=== PATIENT | female | born 1970 | race Caucasian/White ===

== ENCOUNTER → 2019-04-26 12:23 | Outpatient (CLI) | payer MEDICAID, SELFPAY ==
[2019-02-07 06:29] VITALS: BMI 27.7
--- NOTE | 2019-04-26 12:50 | RAD_ITS ---
STUDY: X-RAY - RIGHT KNEE REASON FOR EXAM: Female, 48 years old. Pain TECHNIQUE: 4 view(s) of the knee. COMPARISON: None. FINDINGS: Normal visualized distal femur. Normal visualized proximal tibia and fibula. Normal proximal tibiofibular articulation. Mildly narrowed medial femorotibial compartment. Normal lateral femorotibial compartment. Normal patellofemoral articulation. The soft tissue structures are unremarkable. RAD/Knee 4 or More Views IMPRESSION: Mild degenerative changes. No acute fracture or other significant bony pathology Electronically Signed: Noel Fontana MD at 21:49 EDT , Service support ,
--- NOTE | 2019-04-26 12:50 | RAD_ITS ---
STUDY: X-RAY - RIGHT FOOT CLINICAL: Female, 48 years old. Pain TECHNIQUE: 2 view(s) of the foot. COMPARISON: None. FINDINGS: Normal talus, calcaneus, and tarsal bones. Normal visualized subtalar, talonavicular, calcaneocuboid, tarsal and tarsometatarsal articulations. Normal metatarsi. Normal metatarsophalangeal joint of the great toe. Normal tibial and fibular sesamoid bones. Normal interphalangeal joint of the great toe. Normal phalanges of the great toe. Normal second through fifth metatarsophalangeal joints. Normal interphalangeal joints and phalanges of the lesser toes. The soft tissue structures are unremarkable. RAD/Foot 2 Views IMPRESSION: Normal x-ray examination of the foot. Electronically Signed: Noel Fontana MD at 21:58 EDT , Service support ,
--- NOTE | 2019-04-26 12:50 | RAD_ITS ---
STUDY: X-RAY - LEFT KNEE REASON FOR EXAM: Female, 48 years old. Pain TECHNIQUE: 4 view(s) of the knee. COMPARISON: None. FINDINGS: Normal visualized distal femur. Normal visualized proximal tibia and fibula. Normal proximal tibiofibular articulation. Mildly narrowed medial femorotibial compartment. Normal lateral femorotibial compartment. Normal patellofemoral articulation. Small spur arising off the upper pole of the patella The soft tissue structures are unremarkable. RAD/Knee 4 or More Views IMPRESSION: Mild degenerative change. No evidence for acute fracture Electronically Signed: Noel Fontana MD at 21:48 EDT , Service support ,
--- NOTE | 2019-04-26 12:50 | RAD_ITS ---
STUDY: X-RAY - LEFT HAND REASON FOR EXAM: Female, 48 years old. Pain TECHNIQUE: 3 view(s) of the hand. COMPARISON: None. FINDINGS: Normal radiocarpal articulation. Normal distal radioulnar joint. Normal visualized carpal bones. Normal carpal articulations Normal carpometacarpal articulation of the thumb. Normal second through fifth carpometacarpal joints. Normal metacarpi. Normal metacarpophalangeal joint of the thumb. Normal interphalangeal joint of the thumb. Normal proximal and distal phalanges of the thumb. Normal metacarpophalangeal joints of the second through fifth fingers. Normal proximal and distal interphalangeal joints of the second through fifth fingers. Normal phalanges of the second through fifth fingers. The soft tissue structures are unremarkable. RAD/Hand Min 3 Views IMPRESSION: Normal x-ray examination of the hand. Electronically Signed: Noel Fontana MD at 21:51 EDT , Service support ,
--- NOTE | 2019-04-26 12:50 | RAD_ITS ---
STUDY: X-RAY - RIGHT HAND REASON FOR EXAM: Female, 48 years old. Pain TECHNIQUE: 3 view(s) of the hand. COMPARISON: None. FINDINGS: Normal radiocarpal articulation. Normal distal radioulnar joint. Normal visualized carpal bones. Normal carpal articulations Normal carpometacarpal articulation of the thumb. Normal second through fifth carpometacarpal joints. Normal metacarpi. Normal metacarpophalangeal joint of the thumb. Normal interphalangeal joint of the thumb. Normal proximal and distal phalanges of the thumb. Normal metacarpophalangeal joints of the second through fifth fingers. Normal proximal and distal interphalangeal joints of the second through fifth fingers. Normal phalanges of the second through fifth fingers. The soft tissue structures are unremarkable. RAD/Hand Min 3 Views IMPRESSION: Normal x-ray examination of the hand. Electronically Signed: Noel Fontana MD at 21:50 EDT , Service support ,
--- NOTE | 2019-04-26 12:50 | RAD_ITS ---
STUDY: X-RAY - LEFT FOOT CLINICAL: Female, 48 years old. Pain TECHNIQUE: 2 view(s) of the foot. COMPARISON: None. FINDINGS: Normal talus, calcaneus, and tarsal bones. Normal visualized subtalar, talonavicular, calcaneocuboid, tarsal and tarsometatarsal articulations. Normal metatarsi. Normal metatarsophalangeal joint of the great toe. Normal tibial and fibular sesamoid bones. Normal interphalangeal joint of the great toe. Normal phalanges of the great toe. Normal second through fifth metatarsophalangeal joints. Normal interphalangeal joints and phalanges of the lesser toes. The soft tissue structures are unremarkable. RAD/Foot 2 Views IMPRESSION: Normal x-ray examination of the foot. Electronically Signed: Noel Fontana MD at 21:59 EDT , Service support ,
[2019-04-26 13:11] LABS: Absolute Lymphocyte Count 1.84 X10^3/uL (0.83-4.51); Absolute Neutrophil Count 6.1 X10^3/uL (2.0-7.7); Basophil# 0.05 X10^3/uL; Basophil% 0.6 % (0-1); Eosinophil# 0.21 X10^3/uL; Eosinophils% 2.4 % (0-5); Hematocrit 44.9 % (37-47); Hemoglobin 14.5 g/dL (12.0-15.0); Lymphocyte # 1.84 X10^3/ul (4.0); Mean Corp Hgb Conc 32.3 g/dL (32-36); Mean Corpuscular Hgb 28.4 pg (27.0-32.0); Mean Platelet Vol. 9.3 fl (6.2-12.0); Monocyte% 5.7 % (0-10); NRBC Flagged by Analyzer 0 % (0-5); Neutrophil # 6.12 X10^3/uL (2.7-7.7); Neutrophil % 69.7 % (47-70); Platelet Count 319 K/mm3 (150-450); RBC Distribution Width CV 13.1 % (11.6-14.6); RBC Distribution Width SD 42.1 fl (35.1-43.9); White Blood Count 8.8 K/mm3 (4.4-11.0)
[2019-04-26 13:38] LABS: AST(SGOT) 19 U/L (15-37); Alanine Aminotransfer ALT/SGPT 38 U/L (13-56); Alkaline Phosphatase 161 U/L (45-117); Anion Gap 8 (5-15); BUN 14 mg/dL (7-18); BUN/Creat Ratio 12.8 RATIO (10-20); Calcium,Total 8.9 mg/dL (8.5-10.1); Chloride 105 mmol/L (98-107); Creatinine, Serum 1.09 mg/dL (0.55-1.02); EST Glomerular Filtration Rate 57 mL/min (>60); Est Glom Filt Rate - Afr Amer 68 mL/min (>60); Globulin 4.2 g/dL (2.2-4.2); Glucose 106 mg/dL (74-106); Potassium 3.8 mmol/L (3.5-5.1); Protein, Total 8.2 g/dL (6.4-8.2); Sodium Level 140 mmol/L (136-145); Uric Acid 7.2 mg/dL (2.6-6.0)
[2019-04-26 13:41] LABS: Erythrocyte Sedimentation Rate 34 mm/hr (0-20)
[2019-04-26 14:25] LABS: HIV - WCH Non-Reactive (Nonreactive); Hepatitis C Antibody Non-Reactive (Nonreactive)
[2019-04-27 13:15] LABS: ANTINUCLEAR ANTIBODIES DIRECT Negative (Negative)
[2019-04-27 14:38] LABS: C-Peptide 7.2 ng/mL (1.1-4.4)
== END ==
DX: E55.9 Vitamin D deficiency, unspecified (principal); M25.512 Pain in left shoulder; R21 Rash and other nonspecific skin eruption; M06.4 Inflammatory polyarthropathy
CPT/HCPCS: 36415; 73130; 73564; 73620; 80053; 84550; 84681; 85025; 85652; 86038; 86140; 86431; 86703; 86803

== ENCOUNTER → 2019-05-26 14:49 | Outpatient (CLI) | payer MEDICAID, SELFPAY ==
[2019-02-07 06:29] VITALS: BMI 27.7
--- NOTE | 2019-05-26 15:08 | RAD_ITS ---
STUDY: X-RAY CHEST REASON FOR EXAM: Female, 48 years old. Chronic bronchitis. Rheumatoid arthritis. TECHNIQUE: PA and lateral chest radiographs. COMPARISON: None. FINDINGS: Focal right apical airspace disease most prominent adjacent to the pleura. Mild left apical pleural scarring. Otherwise the lungs are clear with no evidence of pneumothorax or pleural effusion. Cardiac silhouette, serena and mediastinal contours are within normal limits. No acute osseous abnormality. No evidence of free air under the diaphragm. RAD/Chest PA and Lateral IMPRESSION: Right apical airspace disease could represent pneumonia or chronic scarring. Comparison with priors would be helpful. If clinically necessary CT would better visualize this abnormality. Electronically Signed: Ahmet Flores, at 15:39 EDT Tel , Service support ,
[2019-05-31 15:09] LABS: CCP IgG Antibodies 4 units (0-19)
== END ==
DX: J42 Unspecified chronic bronchitis (principal); E55.9 Vitamin D deficiency, unspecified; M25.512 Pain in left shoulder; R21 Rash and other nonspecific skin eruption; M06.4 Inflammatory polyarthropathy; R79.89 Other specified abnormal findings of blood chemistry
CPT/HCPCS: 36415; 71046; 86200

== ENCOUNTER → 2019-06-14 06:34 | Outpatient (CLI) | payer MEDICAID, SELFPAY ==
[2019-02-07 06:29] VITALS: BMI 27.7
--- NOTE | 2019-06-15 09:23 | PFT ---
INTRODUCTION: The patient is a 49-year-old female that presents for pulmonary function studies secondary to a diagnosis of chronic bronchitis. Respiratory therapy reports good patient effort. Bronchodilators were used during testing. INTERPRETATION: Forced expiration spirometry demonstrates the presence of a mild large airways obstructive ventilatory defect. There was no significant response to aerosolized bronchodilators, based upon strict ATS criteria. Spirograms are of fair quality and plateau gradually indicating slow emptying of the lungs. Body plus tomography was performed and reveals lung volumes to be within normal limits. Diffusing capacity by single breath CO is within normal limits at 93% of predicted. IMPRESSION: Mild large airways obstructive ventilatory defect. Lung volumes and diffusing capacity are within normal limits.
== END ==
DX: J42 Unspecified chronic bronchitis (principal); R21 Rash and other nonspecific skin eruption; M06.4 Inflammatory polyarthropathy
CPT/HCPCS: 94060; 94726; 94729

== ENCOUNTER → 2019-07-07 07:29 | Outpatient (CLI) | payer MEDICAID, SELFPAY ==
[2019-02-07 06:29] VITALS: BMI 27.7
--- NOTE | 2019-07-07 07:32 | CT_ITS ---
STUDY: CT CHEST WITHOUT CONTRAST REASON FOR EXAM: Female, 49 years old. Cough RADIATION DOSAGE (If Supplied By Facility): DLP = ( 469.10 ) mGycm TECHNIQUE: Transaxial imaging was performed without the administration of intravenous contrast material. Coronal and sagittal reformatted images were created. Individualized dose optimization techniques were used for this CT. COMPARISON: None FINDINGS: There are no pulmonary infiltrates or pleural effusions. There are innumerable pulmonary nodules in the upper lobes bilaterally with some areas of confluence. Additional nodules are present in the right middle and bilateral lower lobes including a right middle lobe 5 mm nodule, right lower lobe 6 mm nodule, series 4 image 96, right lower lobe 3 mm nodule, series 4 image 54, left fissural 7 mm nodule, series 4 image 60, and left lower lobe 7 mm nodule, series 4 image 81. There is no pneumothorax. The heart and pericardium are within normal limits. Mediastinal and bilateral hilar calcified lymphadenopathy is present. There is no evidence of thoracic aortic aneurysm. Images through the upper abdomen demonstrate no significant abnormality. There are no destructive osseous lesions. CT/Chest without Contrast IMPRESSION: Numerous bilateral pulmonary nodules as described above, with extensive nodules and confluence in the upper lobes, and round solid nodules in the right middle and bilateral lower lobes. Considerations include sarcoid, infectious processes, inflammatory process, and less likely neoplasm. Mixed etiologies also a consideration. Clinical correlation and short-term follow-up is recommended. Electronically Signed: Noel Bingham, at 20:07 EDT Tel , Service support ,
== END ==
DX: M05.9 Rheumatoid arthritis with rheumatoid factor, unspecified (principal); R78.89 Finding of other specified substances, not normally found in blood; R05 Cough; R21 Rash and other nonspecific skin eruption; M06.4 Inflammatory polyarthropathy
CPT/HCPCS: 71250

== ENCOUNTER → 2019-07-28 06:42 | Outpatient (CLI) | payer MEDICAID, SELFPAY ==
[2019-07-22 10:04] VITALS: BMI 26.7
--- NOTE | 2019-07-29 10:01 | BRONCHALL ---
Bronchoprovocation Challenge - Bronchoprovocation Challenge Bronchoprovocation Challenge: BRONCHOPROVOCATION STUDY INTERPRETATION Brief HPI: Patient is a 49 year old female, currently under the care of myself, who presents to [facility] for a bronchoprovocation study secondary to diagnosis of cough/dyspnea. Respiratory therapist reports good effort and reproducible results. Interpretation: Initial spirometry showed no large airways obstructive ventilatory defect. The patient was then given increasingly concentrated doses of methacholine in a stepwise fashion, using a modified ATS protocol. The patient?s maximum reduction in FEV1 was 7 percent predicted. Impression: Negative Bronchoprovocation study. This is NOT consistent with the diagnosis of asthma.
== END ==
PROVIDERS: Referring Provider Internal Medicine Critical Care Medicine; Visit Provider Internal Medicine Critical Care Medicine
DX: R05 Cough (principal); R93.89 Abnormal findings on diagnostic imaging of other specified body structures; M06.9 Rheumatoid arthritis, unspecified
CPT/HCPCS: 94070; 95070; J3490; J7674

== ENCOUNTER → 2019-08-09 13:36 | Outpatient (CLI) | payer MEDICAID, SELFPAY ==
[2019-07-22 10:04] VITALS: BMI 26.7
--- NOTE | 2019-08-09 13:37 | ECHOCS_ITS ---
Reason For Study: PHTN Procedure This was a 2D Doppler, Color Flow transthoracic echocardiogram. The study was technically difficult. Contrast injection was performed. Exam performed in department. Left Ventricle Normal LV size. Left ventricular systolic function is normal. The estimated ejection fraction is 60 %. Transmitral doppler flow suggestive of impaired relaxation of left ventricle. No regional wall motion abnormalities noted. Right Ventricle Normal RV size. Normal systolic function. Atria Normal left atrium. Normal right atrium. No doppler evidence for ASD. Mitral Valve There is no mitral annular calcification. Normal mitral valve. Mild (1+) mitral valve insufficiency. Tricuspid Valve Normal tricuspid valve. Trivial tricuspid valve insufficiency. Unable to estimate RV systolic pressure/pulmonary artery pressure due to technically difficult study. Aortic Valve Trisinus/trileaflet aortic valve. Normal aortic valve. Pulmonic Valve The pulmonic valve is not well visualized. Great Vessels Normal sized aortic root. Pericardium/Pleural No pericardial effusion. Medication 22 gauge I.V. with prn adaptor inserted into right arm. Diluted definity 2ml given slow IV push to enhance endocardial definition. MMode/2D Measurements & Calculations LVIDd: 3.8 cm IVSd: 0.97 cm Ao root diam: 2.9 cm LVIDs: 2.6 cm LVPWd: 0.87 cm LA dimension: 3.3 cm RVDd: 3.8 cm FS: 31.5 % LAV(MOD-bp): 55.7 ml LA A4 area: 19.1 cm2 RA A4 area: 14.2 cm2 LAV(MOD-bp) Indexed: 29.2 ml/m2 LAV(MOD-sp2): 50.8 ml LAV(MOD-sp4): 53.2 ml Time Measurements MV dec time: 0.15 sec Doppler Measurements & Calculations MV E max maurisio: 63.1 cm/sec Lat Peak E' Maurisio: 10.5 cm/sec Med Peak E' Maurisio: 8.3 cm/sec MV A max maurisio: 86.8 cm/sec E/E' lat: 6.0 E/E' med: 7.6 MV E/A: 0.73 MV V2 max: 94.5 cm/sec MV P1/2t max maurisio: 84.8 cm/sec Ao V2 max: 120.4 cm/sec MV max P.6 mmHg MV P1/2t: 65.1 msec Ao max P.8 mmHg MV V2 mean: 56.8 cm/sec MV dec slope: 381.5 cm/sec2 MV mean P.5 mmHg MV V2 VTI: 18.9 cm MVA(P1/2t): 3.4 cm2 LV V1 max: 117.4 cm/sec MR max maurisio: 505.8 cm/sec PA V2 max: 84.7 cm/sec LV V1 max P.5 mmHg MR max P.3 mmHg Interpretation Summary The study was technically difficult. Contrast injection was performed. Left ventricular systolic function is normal. The estimated ejection fraction is 60 %. Mild (1+) mitral valve insufficiency. Trivial tricuspid valve insufficiency. Unable to estimate RV systolic pressure/pulmonary artery pressure due to technically difficult study. Transmitral doppler flow suggestive of impaired relaxation of left ventricle Ordering Physician: Rashaun Louie Referring Physician: Rashaun Louie Performed By: Sae Shanks RCS
== END ==
PROVIDERS: Referring Provider Internal Medicine Critical Care Medicine; Visit Provider Internal Medicine Critical Care Medicine
DX: I27.20 Pulmonary hypertension, unspecified (principal); M06.9 Rheumatoid arthritis, unspecified; R05 Cough; R93.89 Abnormal findings on diagnostic imaging of other specified body structures
CPT/HCPCS: 93306; Q9957; A4216; C8929

== ENCOUNTER → 2020-07-02 08:17 | Outpatient (CLI) | payer MEDICAID, SELFPAY ==
[2020-06-21 10:34] VITALS: BMI 22.5
== END ==
PROVIDERS: Referring Provider Internal Medicine Cardiovascular Disease; Visit Provider Internal Medicine Cardiovascular Disease
DX: I45.10 Unspecified right bundle-branch block (principal); D86.9 Sarcoidosis, unspecified; E78.2 Mixed hyperlipidemia
CPT/HCPCS: 93225; 93226

== ENCOUNTER → 2020-08-03 06:38 | Outpatient (CLI) | payer MEDICAID, SELFPAY ==
[2020-06-21 10:34] VITALS: BMI 22.5
--- NOTE | 2020-08-03 13:49 | PFT ---
INTRODUCTION: The patient is a 50-year-old female that presents for pulmonary function studies secondary to a diagnosis of sarcoidosis. Respiratory therapy reports good patient effort. Bronchodilators were used during testing. INTERPRETATION: Forced expiration spirometry demonstrates no evidence of a large airways obstructive ventilatory defect. There was no significant response to aerosolized bronchodilators. Spirograms are of good quality and plateau normally. Body plethysmography was performed and reveals lung volumes to be within normal limits. Diffusing capacity by single breath CO was also within normal limits. There has been improvement in the patient's FEV 1 by 25% since May 2019. IMPRESSION: Grossly normal pulmonary function studies.
== END ==
DX: D86.2 Sarcoidosis of lung with sarcoidosis of lymph nodes (principal)
CPT/HCPCS: 94060; 94726; 94729

== ENCOUNTER → 2020-10-29 12:44 | Outpatient (CLI) | payer MEDICAID, SELFPAY ==
[2020-06-21 10:34] VITALS: BMI 22.5
--- NOTE | 2020-10-29 12:46 | ECHOD_ITS ---
Reason For Study: Pericardial Effusion Procedure This was a 2D Doppler, Color Flow transthoracic echocardiogram. The exam was of adequate technical quality. Exam performed in department. Left Ventricle Normal LV size. Left ventricular systolic function is normal. The estimated ejection fraction is 65 %. Transmitral doppler flow suggestive of impaired relaxation of left ventricle. No regional wall motion abnormalities noted. Right Ventricle Normal RV size. Normal systolic function. Atria Normal left atrium. Normal right atrium. No doppler evidence for ASD. Mitral Valve There is no mitral annular calcification. Mild diffuse mitral valve thickening. Mild (1+) mitral valve insufficiency. Tricuspid Valve Normal tricuspid valve. Trivial tricuspid valve insufficiency. Right ventricular systolic pressure estimated to be 20 mmHg. Aortic Valve Trisinus/trileaflet aortic valve. Normal aortic valve. Pulmonic Valve The pulmonic valve is not well visualized. Great Vessels Normal sized aortic root. Pericardium/Pleural Trivial pericardial effusion. There are no echocardiographic indications of cardiac tamponade. MMode/2D Measurements & Calculations LVIDd: 4.2 cm IVSd: 0.98 cm Ao root diam: 2.8 cm LVIDs: 2.4 cm LVPWd: 0.90 cm RVDd: 3.2 cm FS: 42.5 % LAV(MOD-bp): 29.7 ml LVAd ap4: 21.6 cm2 SV(MOD-sp4): 28.4 ml LAV(MOD-bp) Indexed: 16.7 ml/m2 EDV(MOD-sp4): 51.4 ml LAV(MOD-sp2): 30.5 ml EDV(sp4-el): 52.4 ml LAV(MOD-sp4): 28.4 ml LVAs ap4: 13.2 cm2 ESV(MOD-sp4): 23.0 ml ESV(sp4-el): 23.2 ml EF(MOD-sp4): 55.2 % EF(sp4-el): 55.7 % SV(sp4-el): 29.2 ml LA A4 area: 12.5 cm2 LA dimension(2D): 3.0 cm RA A4 area: 10.6 cm2 Doppler Measurements & Calculations MV E max maurisio: 74.4 cm/sec Lat Peak E' Maurisio: 12.3 cm/sec Med Peak E' Maurisio: 6.1 cm/sec MV A max maurisio: 87.7 cm/sec E/E' lat: 6.0 E/E' med: 12.3 MV E/A: 0.85 Ao V2 max: 137.5 cm/sec LV V1 max: 99.0 cm/sec PA V2 max: 97.1 cm/sec Ao max P.6 mmHg LV V1 max P.9 mmHg Ao V2 mean: 96.1 cm/sec Ao mean P.0 mmHg Ao V2 VTI: 26.0 cm TR max maurisio: 206.7 cm/sec TR max P.1 mmHg Interpretation Summary Left ventricular systolic function is normal. The estimated ejection fraction is 65 %. Mild diffuse mitral valve thickening. Mild (1+) mitral valve insufficiency. Trivial tricuspid valve insufficiency. Trivial pericardial effusion. There are no echocardiographic indications of cardiac tamponade. Right ventricular systolic pressure estimated to be 20 mmHg. Transmitral doppler flow suggestive of impaired relaxation of left ventricle Ordering Physician: Deep Khoury Referring Physician: Johanna Batista Performed By: Diane Wilkinson, RDCS, RVT
== END ==
PROVIDERS: Referring Provider Internal Medicine Cardiovascular Disease; Visit Provider Internal Medicine Cardiovascular Disease
DX: I31.3 Pericardial effusion (noninflammatory) (principal); D86.9 Sarcoidosis, unspecified; M06.9 Rheumatoid arthritis, unspecified; R93.89 Abnormal findings on diagnostic imaging of other specified body structures
CPT/HCPCS: 93306

== ENCOUNTER → 2021-01-07 14:19 | Outpatient (CLI) | payer MEDICAID, SELFPAY ==
[2020-06-21 10:34] VITALS: BMI 22.5
[2021-01-07 15:15] LABS: Absolute Lymphocyte Count 2.06 X10^3/uL (0.83-4.51); Basophil# 0.07 X10^3/uL; Basophil% 1.2 % (0-1); Eosinophil# 0.13 X10^3/uL; Eosinophils% 2.2 % (0-5); Hematocrit 41.6 % (37-47); Hemoglobin 12.7 g/dL (12.0-15.0); Lymphocyte # 2.06 X10^3/ul (4.0); Lymphocyte % 35.5 % (19-41); Mean Corp Hgb Conc 30.5 g/dL (32-36); Mean Corpuscular Hgb 27.7 pg (27.0-32.0); Mean Corpuscular Volume 90.6 fL (81-99); Mean Platelet Vol. 10.4 fl (6.2-12.0); Monocyte% 8.6 % (0-10); NRBC Flagged by Analyzer 0 % (0-5); Neutrophil # 3.03 X10^3/uL (2.7-7.7); Neutrophil % 52.3 % (47-70); Platelet Count 239 K/mm3 (150-450); RBC Distribution Width CV 12.8 % (11.6-14.6); RBC Distribution Width SD 42.4 fl (35.1-43.9); Red Blood Count 4.59 M/mm3 (4.2-5.4); White Blood Count 5.8 K/mm3 (4.4-11.0)
[2021-01-07 15:48] LABS: ALB/GLOB Ratio 1.1 RATIO (0.9-2.4); AST(SGOT) 17 U/L (15-37); Alanine Aminotransfer ALT/SGPT 24 U/L (13-56); Albumin, Serum 3.8 g/dL (3.2-5.0); Alkaline Phosphatase 95 U/L (45-117); Anion Gap 3 (5-15); BUN 11 mg/dL (7-18); BUN/Creat Ratio 14.8 RATIO (10-20); Chloride 108 mmol/L (98-107); Creatinine, Serum 0.74 mg/dL (0.55-1.02); EST Glomerular Filtration Rate 87 mL/min (>60); Est Glom Filt Rate - Afr Amer 105 mL/min (>60); Globulin 3.6 g/dL (2.2-4.2); Glucose 103 mg/dL (74-106); Potassium 3.6 mmol/L (3.5-5.1); Protein, Total 7.4 g/dL (6.4-8.2); Sodium Level 141 mmol/L (136-145)
[2021-01-07 15:51] LABS: Erythrocyte Sedimentation Rate 26 mm/hr (0-30)
== END ==
PROVIDERS: PCP Family Medicine; Referring Provider Family Medicine; Visit Provider Family Medicine
DX: M06.9 Rheumatoid arthritis, unspecified (principal); D86.9 Sarcoidosis, unspecified; Z51.81 Encounter for therapeutic drug level monitoring
CPT/HCPCS: 36415; 80053; 85025; 85652; 86140

== ENCOUNTER → 2021-02-04 09:19 | Outpatient (CLI) | payer MEDICAID, SELFPAY ==
[2021-01-07 15:13] VITALS: BMI 20.9
[2021-02-04 09:53] LABS: Erythrocyte Sedimentation Rate 3 mm/hr (0-30)
[2021-02-04 11:26] LABS: AST(SGOT) 18 U/L (15-37); Alanine Aminotransfer ALT/SGPT 25 U/L (13-56); Albumin, Serum 4.3 g/dL (3.2-5.0); Alkaline Phosphatase 96 U/L (45-117); Bilirubin, Direct 0.15 mg/dL (0.00-0.30); CRP < 2.90 mg/L (0.0-3.0); Globulin 3.7 g/dL (2.2-4.2)
== END ==
PROVIDERS: PCP Family Medicine; Referring Provider Family Medicine; Visit Provider Family Medicine
DX: D86.9 Sarcoidosis, unspecified (principal); M06.9 Rheumatoid arthritis, unspecified; Z51.81 Encounter for therapeutic drug level monitoring
CPT/HCPCS: 36415; 80076; 85652; 86140

== ENCOUNTER → 2021-03-20 10:33 | Outpatient (CLI) | payer MEDICAID, SELFPAY ==
[2021-01-07 15:13] VITALS: BMI 20.9
[2021-03-20 11:54] LABS: Erythrocyte Sedimentation Rate 2 mm/hr (0-30)
[2021-03-20 11:59] LABS: Absolute Neutrophil Count 4.3 X10^3/uL (2.0-7.7); Basophil# 0.09 X10^3/uL; Basophil% 1.4 % (0-1); Eosinophil# 0.08 X10^3/uL; Eosinophils% 1.3 % (0-5); Hematocrit 45.1 % (37-47); Hemoglobin 14.4 g/dL (12.0-15.0); Lymphocyte % 22.3 % (19-41); Mean Corp Hgb Conc 31.9 g/dL (32-36); Mean Corpuscular Hgb 28.9 pg (27.0-32.0); Mean Corpuscular Volume 90.6 fL (81-99); Monocyte% 6.4 % (0-10); NRBC Flagged by Analyzer 0 % (0-5); Neutrophil # 4.25 X10^3/uL (2.7-7.7); Neutrophil % 67.6 % (47-70); Platelet Count 288 K/mm3 (150-450); RBC Distribution Width CV 12.3 % (11.6-14.6); RBC Distribution Width SD 40.6 fl (35.1-43.9); Red Blood Count 4.98 M/mm3 (4.2-5.4); White Blood Count 6.3 K/mm3 (4.4-11.0)
[2021-03-20 12:25] LABS: ALB/GLOB Ratio 1.2 RATIO (0.9-2.4); AST(SGOT) 20 U/L (15-37); Alanine Aminotransfer ALT/SGPT 28 U/L (13-56); Albumin, Serum 4.5 g/dL (3.2-5.0); Alkaline Phosphatase 104 U/L (45-117); Anion Gap 7 (5-15); BUN 8 mg/dL (7-18); BUN/Creat Ratio 8.7 RATIO (10-20); CRP < 2.90 mg/L (0.0-3.0); Calcium,Total 9.5 mg/dL (8.5-10.1); Chloride 106 mmol/L (98-107); Creatinine, Serum 0.92 mg/dL (0.55-1.02); EST Glomerular Filtration Rate 68 mL/min (>60); Est Glom Filt Rate - Afr Amer 83 mL/min (>60); Globulin 3.7 g/dL (2.2-4.2); Glucose 91 mg/dL (74-106); Potassium 4.3 mmol/L (3.5-5.1); Protein, Total 8.2 g/dL (6.4-8.2); Sodium Level 142 mmol/L (136-145)
== END ==
PROVIDERS: PCP Family Medicine; Referring Provider Family Medicine; Visit Provider Family Medicine
DX: Z51.81 Encounter for therapeutic drug level monitoring (principal); D86.9 Sarcoidosis, unspecified; M06.9 Rheumatoid arthritis, unspecified
CPT/HCPCS: 36415; 80053; 85025; 85652; 86140

== ENCOUNTER → 2021-04-12 09:32 | Outpatient (CLI) | payer MEDICAID, SELFPAY ==
[2021-04-12 11:10] LABS: T4 Free Direct 1.14 ng/dL (0.76-1.46); Thyroid Stim Hormone (TSH) 1.04 uIU/mL (0.358-3.74)
== END ==
PROVIDERS: PCP Family Medicine; Referring Provider Nurse Practitioner Family; Visit Provider Nurse Practitioner Family
DX: I45.10 Unspecified right bundle-branch block (principal); R00.2 Palpitations
CPT/HCPCS: 36415; 84439; 84443

== ENCOUNTER → 2021-08-21 17:13 | Outpatient (CLI) | payer MEDICAID, SELFPAY ==
--- NOTE | 2021-08-21 17:20 | RAD_ITS ---
STUDY: X-RAY - CERVICAL SPINE REASON FOR EXAM: Female, 51 years old. Neck pain TECHNIQUE: 3 view(s) of the cervical spine were obtained. COMPARISON: None FINDINGS: Normal anterior atlantoaxial articulation. Normal odontoid process. Normal cervical lordosis. Normal vertebral bodies and endplates. Normal disc space heights. Multilevel facet arthropathy particularly at C3-C4 and C4-C5. The soft tissue structures are unremarkable. RAD/Cerv Spine 2 or 3 Views IMPRESSION: Upper cervical facet arthropathy. Preservation of disc heights. Electronically Signed: Claudy Bill MD ([place]) at 11:00 EST , Service support ,
== END ==
PROVIDERS: PCP Family Medicine; Visit Provider Anesthesiology Pain Medicine
DX: M50.30 Other cervical disc degeneration, unspecified cervical region (principal); M47.892 Other spondylosis, cervical region
CPT/HCPCS: 72040

== ENCOUNTER → 2021-08-30 12:46 | Outpatient (CLI) | payer MEDICAID, SELFPAY ==
[2021-08-30 13:35] LABS: Absolute Lymphocyte Count 1.65 X10^3/uL (0.83-4.51); Absolute Neutrophil Count 3.3 X10^3/uL (2.0-7.7); Basophil# 0.06 X10^3/uL; Basophil% 1.1 % (0-1); Eosinophil# 0.15 X10^3/uL; Eosinophils% 2.7 % (0-5); Hematocrit 42.1 % (37-47); Hemoglobin 13.2 g/dL (12.0-15.0); Lymphocyte # 1.65 X10^3/ul (0.83-4.51); Lymphocyte % 29.8 % (19-41); Mean Corp Hgb Conc 31.4 g/dL (32-36); Mean Corpuscular Hgb 28.4 pg (27.0-32.0); Mean Corpuscular Volume 90.5 fL (81-99); Mean Platelet Vol. 9.4 fl (6.2-12.0); Monocyte# 0.41 X10^3/uL; Monocyte% 7.4 % (0-10); NRBC Flagged by Analyzer 0 % (0-5); Neutrophil # 3.25 X10^3/uL (2.7-7.7); Neutrophil % 58.6 % (47-70); Platelet Count 276 K/mm3 (150-450); RBC Distribution Width CV 12.4 % (11.6-14.6); RBC Distribution Width SD 40.4 fl (35.1-43.9); Red Blood Count 4.65 M/mm3 (4.2-5.4); White Blood Count 5.5 K/mm3 (4.4-11.0)
[2021-08-30 13:36] LABS: Erythrocyte Sedimentation Rate 7 mm/hr (0-30)
[2021-08-30 13:57] LABS: ALB/GLOB Ratio 1.1 RATIO (0.9-2.4); AST(SGOT) 20 U/L (15-37); Alanine Aminotransfer ALT/SGPT 26 U/L (13-56); Albumin, Serum 3.9 g/dL (3.2-5.0); Alkaline Phosphatase 90 U/L (45-117); Anion Gap 3 (5-15); BUN 7 mg/dL (7-18); BUN/Creat Ratio 8.3 RATIO (10-20); CRP < 2.90 mg/L (0.0-3.0); Calcium,Total 9.4 mg/dL (8.5-10.1); Chloride 108 mmol/L (98-107); Creatinine, Serum 0.84 mg/dL (0.55-1.02); EST Glomerular Filtration Rate 75 mL/min (>60); Est Glom Filt Rate - Afr Amer 91 mL/min (>60); Globulin 3.7 g/dL (2.2-4.2); Glucose 119 mg/dL (74-106); Protein, Total 7.6 g/dL (6.4-8.2); Sodium Level 144 mmol/L (136-145)
== END ==
PROVIDERS: PCP Family Medicine; Visit Provider Family Medicine
DX: D86.9 Sarcoidosis, unspecified (principal); M06.9 Rheumatoid arthritis, unspecified; Z51.81 Encounter for therapeutic drug level monitoring
CPT/HCPCS: 36415; 80053; 85025; 85652; 86140

== ENCOUNTER → 2021-09-10 16:51 | Outpatient (CLI) | payer MEDICAID, SELFPAY ==
--- NOTE | 2021-09-10 17:11 | MRI_ITS ---
STUDY: MRI CERVICAL SPINE WITHOUT CONTRAST REASON FOR EXAM: Female, 51 years old. neck pain and ROM, rheumatoid arthritis TECHNIQUE: Standardized fat and water weighted pulse sequences were obtained in the sagittal and axial planes. COMPARISON: None FINDINGS: Normal foramen magnum and brainstem-cervical cord junction. Normal craniovertebral junction. Normal anterior atlantoaxial articulation. Normal odontoid process. Normal cervical lordosis. Normal vertebral bodies and posterior osseous elements. C2-3: Normal endplates. Normal disc height, signal and morphology. Normal central canal and intervertebral neural foramina. C3-4: Normal endplates. Normal disc height, signal and morphology. Normal central canal and intervertebral neural foramina. C4-5: Normal endplates. Normal disc height, signal and morphology. Normal central canal and intervertebral neural foramina. C5-6: Normal endplates. Normal disc height, signal and morphology. Normal central canal and intervertebral neural foramina. C6-7: Normal endplates. Normal disc height, signal and tiny central disc protrusion.. Normal central canal and intervertebral neural foramina. C7-T1: Normal endplates. Normal disc height, signal and morphology. Normal central canal and intervertebral neural foramina. Normal cervical cord. Normal visualized soft tissue structures. MRI/Spine Cervical (Routine) IMPRESSION: Tiny central disc protrusion at C6-7 without spinal stenosis.. No other significant abnormality Electronically Signed: Noel Fontana MD at 18:43 EST , Service support ,
== END ==
PROVIDERS: PCP Family Medicine; Referring Provider Anesthesiology Pain Medicine; Visit Provider Anesthesiology Pain Medicine
DX: M50.30 Other cervical disc degeneration, unspecified cervical region (principal); M50.223 Other cervical disc displacement at C6-C7 level; M06.9 Rheumatoid arthritis, unspecified
CPT/HCPCS: 72141

== ENCOUNTER 2021-11-18 07:03 | Outpatient (CLI) | payer MEDICAID, SELFPAY ==
--- NOTE | 2021-11-18 07:04 | MRI_ITS ---
STUDY: MRI RIGHT SHOULDER REASON FOR EXAM: Right shoulder pain since July, no specific injury, rheumatoid arthritis. TECHNIQUE: Standardized fat and water weighted pulse sequences were obtained in all 3 orthogonal planes. COMPARISON: Radiographs 11/13/2021. FINDINGS: There is mild supraspinatus/infraspinatus tendinosis (T2 coronal images 9, 10) without discrete tendon tear. There is mild subscapularis tendinosis (proton-density axial image 12) without discrete tendon tear. Normal teres minor tendon. Normal supraspinatus muscle. Normal infraspinatus muscle. Normal subscapularis muscle. Normal teres minor muscle. Normal glenohumeral articulation. There is a small cyst in the posterior aspect of the greater tuberosity. Normal biceps labral complex. Normal intracapsular long biceps tendon. Normal labrum. Normal capsulo- ligamentous complex. Normal acromioclavicular articulation. There is a Type II morphology (curved), with a neutral orientation. There is no subacromial-subdeltoid bursal fluid. Normal visualized coracohumeral and coracoacromial ligaments. There is a low-grade strain of the posterior lateral deltoid muscle (T2 coronal image 5). Normal trapezius muscle. MRI/Upper Ext Joint Only(Routine) IMPRESSION: Mild supraspinatus, infraspinatus and subscapularis tendinosis without demonstrated rotator cuff tear. Low-grade strain of the posterior lateral deltoid muscle. Electronically Signed: Mario Lyons MD at 8:35 EST ,
== END 2021-11-18 23:59 | disposition home or self-care (01) ==
LOC: MRI 07:04
PROVIDERS: PCP Family Medicine; Referring Provider Orthopaedic Surgery; Visit Provider Orthopaedic Surgery
DX: M75.21 Bicipital tendinitis, right shoulder (principal); M06.9 Rheumatoid arthritis, unspecified; M67.813 Other specified disorders of tendon, right shoulder
CPT/HCPCS: 73221

== ENCOUNTER → 2025-04-24 | Outpatient (CLI) | payer MEDICARE, SELFPAY ==
--- NOTE | 2025-04-24 07:42 | VDLE_ITS ---
Reason For Study Reason For Study: Swelling RLE RIGHT LEFT GSV is normal. CFV is compressible, spontaneous, phasic, competent, CFV is compressible, spontaneous, phasic, competent and demonstrates normal augmentation. and demonstrates normal augmentation. FV is compressible, spontaneous, phasic, competent and demonstrates normal augmentation. POP V is compressible, spontaneous, phasic, competent and demonstrates normal augmentation. T/P Trunk is compressible. PTV is compressible. RT PerV is compressible. SFJ is competent and measures 0.34cm x 0.40 cm. GSV proximal thigh measures 0.27cm x 0.28 cm. GSV at knee measures 0.17cm x 0.16 cm. GSV is competent throughout. SSV mid calf is competent and measures 0.13cm x 0.13 cm. Procedure This is a venous duplex using B-mode, color flow and spectral Doppler. Exam performed in department. A preliminary report was called and/or faxed to Dr. Medina. VL/Venous Duplex US, Unilateral Interpretation Summary Deep veins of the right lower extremity are patent and compressible segmentally . There is no evidence of right lower extremity deep vein thrombosis. Valvular competence appears intact within the p roximal deep venous system on the right . The right great saphenous vein appears patent and compressible segmentally. The right sapheno-femoral junction is competent . The right great saphenous vein appears segmentally competent. The r ight small saphenous vein is patent and competent. The left common femoral vein is patent and compressible . Ordering Physician: Husam Medina Referring Physician: Husam Medina Performed By: Diane Wilkinson RDCS, RVT
== END | disposition home or self-care (01) ==
PROVIDERS: PCP Family Medicine; Referring Provider Family Medicine; Visit Provider Family Medicine
DX: M79.89 Other specified soft tissue disorders (principal)
CPT/HCPCS: 93971

== ENCOUNTER → 2025-07-12 | Outpatient (CLI) | payer MEDICARE, MEDICAID, SELFPAY ==
--- NOTE | 2025-07-12 08:28 | US_ITS ---
PROCEDURE: ABDOMEN LIMITED 07/12/2025 REASON FOR EXAM: INCIDENTAL HYPERECHOIC STX ON ECHO TECHNIQUE: Procedure Code: USABDL Modality: US Procedure: ABDOMEN LIMITED COMPARISON: None. FINDINGS: LIVER ECHOGENICITY: Normal SIZE: Normal measuring 14.7 cm in length. CONTOUR: Smooth. MASS: None. PORTAL VEIN: Normal direction hepatopetal portal venous flow. GALLBLADDER SIZE: Normal. STONES: Multiple present. SLUDGE: None. WALL THICKNESS: Normal measuring 2.5 mm. PERICHOLECYSTIC FLUID: None. SONOGRAPHIC FLORES'S SIGN: Negative. BILE DUCTS: Normal with the CBD measuring 4.9 mm in diameter. PANCREAS: Unremarkable as visualized. The distal pancreas is obscured by overlying bowel gas. RIGHT KIDNEY: Normal size and echogenicity with a length of 9.9 cm. No hydronephrosis, nephrolithiasis, cyst or mass seen. ASCITES/EFFUSIONS: None. OTHER: None. US/Abdomen Limited IMPRESSION: Cholelithiasis without signs of acute cholecystitis. Reading Location: [id number]
== END | disposition home or self-care (01) ==
LOC: US 08:26
PROVIDERS: PCP Family Medicine; Referring Provider Family Medicine; Visit Provider Family Medicine
DX: R16.0 Hepatomegaly, not elsewhere classified (principal)
CPT/HCPCS: 76705